=== PATIENT | male | born 1975 | race Caucasian/White ===

== ENCOUNTER 2016-08-08 17:49 | Emergency (ER) | payer OTHER ==
[~2016-08-08] VITALS: Ht 180.3 cm; Wt 61.2 kg
[2016-08-08] MEDS ORDERED: ULTRAM50 MG PO (20:10)
[2016-08-08 20:35] VITALS: BP 126/68
== END 2016-08-08 20:36 | disposition home or self-care (01) ==
LOC: EME 17:49
DX: S20.219A Contusion of unspecified front wall of thorax, initial encounter (principal); M54.5 Low back pain; V49.50XA Passenger injured in collision with unspecified motor vehicles in traffic accident, initial encounter
CPT/HCPCS: 71020; 99281; 99284